=== PATIENT | male | born 1960 | race Caucasian/White ===

== ENCOUNTER 2019-03-12 22:14 | Emergency (ER) | payer SELFPAY, OTHER | END 2019-03-12 23:10 | disposition left against medical advice (07) | LOC: E/R 22:14 | DX: Z53.21 Procedure and treatment not carried out due to patient leaving prior to being seen by health care provider (principal) ==

== ENCOUNTER 2019-04-04 18:29 | Emergency (ER) | payer SELFPAY | END 2019-04-04 23:11 | disposition left against medical advice (07) | LOC: E/R 18:29 | DX: Z53.21 Procedure and treatment not carried out due to patient leaving prior to being seen by health care provider (principal) ==